=== PATIENT | male | born 1980 | race Caucasian/White ===

== ENCOUNTER 2022-09-05 17:29 | Emergency (ER) | payer OTHER, SELFPAY ==
--- NOTE | ~2022-09-05 | CT_ITS ---
EXAMINATION: CT abdomen pelvis w con DATE: 09/05/2022 19:38 INDICATION: R flank/low back, RUQ pain TECHNIQUE: Computed tomography (CT) of the abdomen and pelvis was performed with 100 mL Omnipaque-350 intravenous contrast. Automated exposure control and iterative reconstruction technique were employe d. The dose-length product was 1599.39 mGy-cm. COMPARISON: None. FINDINGS: Lower thorax: Small focus of atelectasis/consolidation in the right lung base. Trace right pleural fl uid Liver: Normal. Biliary/Gallbladder: Gallbladder is normal. No bile duct dilation. Pancreas: No mass or duct dilation. Spleen: Normal. Adrenals:No mass. Kidneys: No mass, stone, or hydronephrosis. GI tract: No small or large bowel dilation. Normal appendix. Mesentery/Peritoneum: No ascites, mass, or free air. Retroperitoneum: No mass. Pelvis: Pelvic organs are within normal limits. Soft Tissues: Soft tissues and body wall unremarkable. Bones: No acute osseous finding. IMPRESSION: Small focus of dependent atelectasis, consolidation or aspiration in the dependent right lung base. T race right pleural effusion. No other acute abdominopelvic process detected. Specifically there is no evidence of nephrolithiasis, obstructive uropathy, or appendicitis. Reviewed, dictated and finalized at location K. IMPRESSION: Small focus of dependent atelectasis, consolidation or aspiration in the depend ent right lung base. Trace right pleural effusion. No other acute abdominopelvi c process detected. Specifically there is no evidence of nephrolithiasis, obstr uctive uropathy, or appendicitis.
--- NOTE | ~2022-09-05 | CT_ITS ---
EXAMINATION: CTA chest PE protocol DATE: 09/05/2022 20:10 INDICATION: R flank/upper abd pain TECHNIQUE: Computed tomography angiography (CTA) of the chest was performed with 100 mL Omnipaque-350 intravenous contrast timed to evaluate the pulmonary arteries. Coronal maximum intensity projection 3D-reconstructions were created by the technologist. The dose-length product (DLP) was 715.28 mGy-cm. Automated exposure control and iterative reconstruction technique were employed. COMPARISON: None. FINDINGS: Lung parenchyma and airways: Minimal subsegmental right basilar opacity. Pleura: Very small volume right pleural fluid. Thoracic inlet, axillae and chest wall: Unremarkable. Thoracic aorta: Normal. Mediastinum: Normal. Heart and pericardium: Normal. Coronary artery calcifications: Mild cardiomegaly. Upper abdomen: No significant finding. Incidental note of a small right adrenal adenoma. Bones: No acute osseous finding. Pulmonary arteries: Study quality: Adequate. No pulmonary emboli detected. IMPRESSION: No CT evidence of acute pulmonary embolus. Small focus of atelectasis, consolidation, or aspiration i n the right dependent lung base. Trace right pleural effusion. Reviewed, dictated and finalized at location K. IMPRESSION: No CT evidence of acute pulmonary embolus. Small focus of atelectasis, consolid ation, or aspiration in the right dependent lung base. Trace right pleural effu amanda.
[2022-09-05 17:32] VITALS: BP 149/90; PULSE 80; RESP 18; TEMP 37; O2SAT 97
[2022-09-05 17:53] LABS: Basophils Percent Auto 0.4 % (0.2-1.2); Eosinophils Absolute Auto 0.2 K/mm3 (0-0.3); Eosinophils Percent Auto 1.6 % (0-4.4); Hematocrit 46.6 % (42.0-52.0); Hemoglobin 16.3 g/dL (14.0-18.0); Immature Granulocyte Absolute 0.05 K/mm3 (0.00-0.031); Immature Granulocyte Percent A 0.5 % (0-0.5); Lymphocytes Percent Auto 24.7 % (18.3-44.2); Mean Corpuscular Hemoglobin 30.4 pg (26-34); Mean Corpuscular Volume 86.8 fl (80-100); Mean Platelet Volume 9.1 fl (7.4-10.4); Monocytes Absolute Auto 1.2 K/mm3 (0.1-0.6); Monocytes Percent Auto 11.9 % (2.6-8.5); Neutrophils Absolute Auto 6.2 K/mm3 (1.3-6.7); Neutrophils Percent Auto 60.9 % (45.5-73.1); Platelet Count Result 253 k/mm3 (150-375); Red Blood Count 5.37 M/mm3 (4.6-6.20); Red Cell Distribution Width 13.4 % (11.5-14.5); White Blood Count 10.1 K/mm3 (4.5-10.0)
[2022-09-05 18:10] LABS: Alanine Aminotransferase 36 U/L (6-50); Albumin Level 4.4 g/dL (3.5-5.1); Alkaline Phosphatase 72 U/L (38-126); Anion Gap 7 mmol/L (8-16); Aspartate Amino Transferase 29 U/L (17-59); Bilirubin,Total 0.9 mg/dL (0.2-1.3); Blood Urea Nitrogen 13 mg/dL (9-20); Calcium 8.8 mg/dL (8.4-10.2); Carbon Dioxide 27 mmol/L (22-30); Chloride 104 mmol/L (98-107); Estimated CRCL calculation 85 ml/min; Estimated Glomerular Filt Rate > 60; Glucose 104 mg/dL (65-110); Potassium 3.9 mmol/L (3.4-5.0); Sodium 138 mmol/L (137-145)
[2022-09-05 19:03] LABS: Appearance Urine Clear (Clear); Bacteria Urine None Seen /hpf; Bilirubin Urine Negative (Negative); Blood Urine Negative (Negative); Color Urine Yellow (Yellow); Glucose Urine UA Negative (Negative); Ketones Urine Negative (Negative); Leukocyte Esterase Ur Negative LEU/UL (Negative); Nitrate Urine Negative (Negative); Non Pathogenic Casts 0-2; Protein Urine 3+ mg/dL (Negative); RBC Urine 0-2 /hpf (0-2); Specific Grav Ur 1.026 (1.001-1.035); Squamous Epithelial Cell Urine None seen /hpf (Few); WBC Urine 0-5 /hpf; pH Urine 7.5 (5.0-9.0)
--- NOTE | 2022-09-05 19:04 | ED.GENADULT ---
HPI - General Adult General Chief complaint: Urogenital-Male <Dena Palm PA-C - Last Filed: 09/06/22 02:22> Stated complaint: right flank pain, hx pe <ANISHA Man Last Filed: 09/06/22 02:22> Time Seen by Provider: 09/05/22 18:25 <ANISHA Man Last Filed: 09/06/22 02:22> Source: patient <ANISHA Man Last Filed: 09/06/22 02:22> Mode of arrival: ambulatory <ANISHA Man Last Filed: 09/06/22 02:22> Limitations: no limitations <ANISHA Man Last Filed: 09/06/22 02:22> History of Present Illness HPI narrative: Patient is a 41-year-old male who presents the ED with report of right low back and right-sided abdomen pain. Patient reports the pain began suddenly in his right lower back, radiating around to his R upper and lower abdomen, around 4:30 PM today. Pain has been fairly constant since then, worse with movement and certain positions, including walking and lying flat. Patient took Tylenol at the onset of his pain, but denied improvement. He has never had pain like this before. No recent injury or heavy lifting. No Hx of GB issues or kidney stones. Patient denies any N/V/D, constipation, urinary sx's, fevers. Patient notes Hx of pulmonary embolism and states he has had mild difficulty taking deep breaths due to the pain. He is on Eliquis 5mg BID and denies missing any doses. Denies any lower extremity pain or swelling. Denies CP. <ANISHA Man Last Filed: 09/06/22 02:22> Related Data Allergies/adverse reactions: Allergies Allergy/AdvReac Type Severity Reaction Status Date / Time ciprofloxacin Allergy Unknown Unknown Verified 09/05/22 17:30 naproxen Allergy Unknown Unknown Verified 09/05/22 17:30 <ANISHA Man Last Filed: 09/06/22 02:22> Review of Systems Review of Systems: CONSTITUTIONAL: Denies fever, chills, or sweats. CARDIOVASCULAR: Denies chest pain. RESPIRATORY: See HPI. GASTROINTESTINAL: See HPI. GENITOURINARY: Denies dysuria or hematuria. SKIN: Denies rash or itching. MUSCULOSKELETAL: See HPI. NEUROLOGIC: Denies headache, numbness, or weakness. <Dena Palm PA-C - Last Filed: 09/06/22 02:22> All systems reviewed & are unremarkable except as noted in HPI and below <Dena Palm PA-C - Last Filed: 09/06/22 02:22> [facility] Past Medical History Medical History: Medical History History of pulmonary embolism Insomnia <Dena Palm PA-C - Last Filed: 09/06/22 02:22> Surgical History Surgical History: Surgical History No pertinent past surgical history <Dena Palm PA-C - Last Filed: 09/06/22 02:22> Social History Social History: Social History Smoking status: Never smoker <Dena Palm PA-C - Last Filed: 09/06/22 02:22> Exam Narrative: GENERAL: Mildly uncomfortable appearing, morbidly obese, non-toxic, in no acute distress. HEAD: Normocephalic, atraumatic. NECK: Supple. No adenopathy, no masses. RESPIRATORY: Airway patent, respirations nonlabored. Clear to auscultation bilaterally, no rales, rhonchi, wheezing. CARDIOVASCULAR: Regular rate and rhythm without murmurs, rubs, or gallops. Radial pulses 2+ and equal bilaterally. ABDOMINAL: Soft, tenderness in epigastric region and right upper quadrant, nondistended, no hepatosplenomegaly. Normoactive BS. MUSCULOSKELETAL: Moves all extremities. Strength/ROM intact without gross deformities. TTP in R lumbosacral region, no significant midline spinal tenderness. SKIN: Warm, dry, normal color. No rashes. NEURO: A&O X3. Speech clear. Cranial nerves II-XII grossly intact. Steady gait. No ataxic movements. PSYCHIATRIC: Appropriate mood and affect. Normal interact
[2022-09-05] MEDS: SODIUM CHLORIDE 0.9% IV 1,000 ML 999 ML IV CONT (19:18)
[2022-09-05] MEDS: ONDANSETRON INJ 4 MG/2 ML VIAL IV PUSH (19:18)
[2022-09-05] MEDS: MORPHINE SULFATE (*CRX) 4 MG/ML INJ IV PUSH (19:18)
[2022-09-05 19:19] LABS: Add Urine Microscopic? YES
--- NOTE | 2022-09-05 19:59 | ECG_ITS ---
Measurements Intervals [place] Rate: 73 P: 20 MI: 178 QRS: 27 QRSD: 106 T: 4 QT: 372 QTc: 410 Interpretive Statements SINUS RHYTHM NO PREVIOUS ECG AVAILABLE FOR COMPARISON Electronically Signed On 09-06-2022 9:38:46 CDT by Triston Og M.D.
[2022-09-05 20:10] LABS: Lipase 36 U/L (23-300)
[2022-09-05] MEDS: diazePAM INJ (*CRX) 10 MG/2 ML SYRINGE 2 MG IV PUSH (20:19)
[2022-09-05 20:49] LABS: Troponin I < 0.012 ng/mL (0.000-0.034)
[2022-09-05 21:05] VITALS: BP 136/89; PULSE 73; RESP 15; O2SAT 99
== END 2022-09-05 21:28 | disposition home or self-care (01) ==
PROVIDERS: Emergency Medicine; Emergency Provider Physician Assistant; PCP Internal Medicine
DX: J18.9 Pneumonia, unspecified organism (principal); R10.9 Unspecified abdominal pain; J90 Pleural effusion, not elsewhere classified
CPT/HCPCS: 36415; 71275; 74177; 80053; 81001; 83690; 84484; 85025; 93005; 96361; 96374; 96375; 99284; J2270; J2405; J3360; J7030; Q9967

== ENCOUNTER 2025-01-05 00:25 | Day surgery (SDC) | payer OTHER, SELFPAY ==
[2024-12-31 10:06] VITALS: BMI 46.1
--- NOTE | 2025-01-01 17:23 | PC.NURSE ---
Spoke with _patient__ regarding medication _eliquis_. Patient_verbalizes understanding that the last dose is to be taken on 01/01/2025 and the Endoscopist will instruct them when to restart after the procedure.
--- OUTSIDE RECORDS SUMMARY | 2025-01-05 00:28 | XMS_ITS | Clinical Summary ---
Author Organization [facility] Address [address] [place] [address] Phone Care Team Providers Care Otolaryngology Rep Name Role Phone Maxx Chen MD Primary Care Provider [phone] Social History Tobacco Use Types Packs/Day Years Used Date Smoking Tobacco: Never Assessed Sex and Gender Information Value Date Recorded Sex Assigned at Not on file Legal Sex Male 8:20 AM CDT Gender Identity Not on file Sexual Orientation Not on file Plan of Treatment Health Maintenance Due Date Last Done Comments DTAP/TDAP/TD VACCINES (1 - Tdap) 10/26/1998 HEPATITIS B VACCINES (1 of 3 - 19+ 3-dose series) 10/12 HPV VACCINES (1 - 3-dose SCDM series) 10/26/2006 COLORECTAL SCREENING 10/26/2024 Colorectal Cancer Screening 10/26/2024 FIT-DNA Q 3 years 10/26/2024 FIT/FOBT Q 1 year 10/26/2024 Flex Sig/CT Colonography Q 5 years 10/26/2024 INFLUENZA VACCINE (#1) 2024 Care Teams Otolaryngology Rep Relationship Specialty Start Date End Date Maxx Chen MD [address] [facility] [address] [place] [id number] PCP - General Internal Medicine 11/08/16
--- NOTE | 2025-01-05 06:59 | P.PNAN_ITS ---
Anes - Initial Pre Proc Eval Procedure: Operation Date: 01/05/25 11:00 Proposed Procedures p Screening Colonoscopy - Ilan Pang DO Date/Time: 01/05/25 06:59 Surgeon: Ilan Pang DO Pre Op Diagnosis: Neoplasm screening Patient Data Age: 44 Gender: M Height: 1.63 m Weight: 122 kg Allergies Allergy/AdvReac Type Severity Reaction Status Date / Time ciprofloxacin Allergy Unknown Unknown Verified 01/05/25 10:01 naproxen Allergy Unknown Unknown Verified 01/05/25 10:01 Home Medications ?Medication ?Instructions ?Recorded ?Confirmed ?Type apixaban 5 mg tablet (Eliquis) 5 mg PO Q12H 12/31/24 0 01/05/25 History cholecalciferol (vitamin D3) 125 5,000 unit PO DAILY 0 12/31/24 01/05/25 History mcg (5,000 unit) tablet (Vitamin D3) trazodone 50 mg tablet 50 mg PO HS 12/31/24 5 History Patient hx anesthesia problems: none Family hx anesthesia problems: none Results Review: All pre-operative results and documents have been reviewed as part of the pre- operative evaluation. [facility] Past Medical History Medical History History of pulmonary embolism Insomnia Surgical History Surgical History No pertinent past surgical history Social History Social History Smoking packs per day: 0.5 Smoking cigarettes per day: 10.0 Years smoked: 20 Smoking pack-years: 10.00 Smoking status: Former smoker Tobacco type: cigarettes and e-cigarettes/vaping Alcohol intake: current Alcohol use details: 2-10 SHOTS OF WHISKEY ON THE WEEKENDS Substance use: former Substance use type: does not use Living arrangements: with family Spiritual care concerns: No Anes - Eval Final PreProcedure Day of Procedure 01/05/25 06:59 Patient weight: morbidly obese Heart: regular rate and rhythm Lungs: clear to auscultation Airway: Mallampati scale class II Neurological: alert and oriented Last oral intake: >/= 8 hours ASA classification: III Emergent: no Anesthetic plan: proceed Anesthesia type and monitoring: general GIVS and standard monitoring Results Review: All pre-operative results and documents have been reviewed as part of the pre- operative evaluation. Informed Consent: The patient's anesthetic plan and its attendant risks and benefits were discussed with the patient/family/POA. Questions were solicited and answers provided to the satisfaction of the patient/family/POA.
[2025-01-05 09:57] VITALS: BP 123/86; PULSE 82; RESP 16; TEMP 36.5; O2SAT 98; BMI 45.9
[2025-01-05] MEDS: LACTATED RINGERS 1,000 ML 150 ML IV CONT (10:13)
--- NOTE | 2025-01-05 10:27 | PM.IMHP ---
H&P: HPI History of Present Illness Date/Time: 01/05/25 10:27 Chief Complaint: screening for colorectal cancer Narrative: this is a 44-year-old man who presents for colonoscopy. He has never had a colonoscopy before. He denies any hematochezia melena. He is adopted and does not know his family history. Review of Systems Review of Systems: All systems reviewed & are unremarkable except as noted in HPI and below Constitutional: Constitutional: Denies chills, Denies fever(s), Denies headache(s) and Denies weight loss Eyes: Eyes: Denies change in vision ENT: Denies dizziness, Denies headache(s), Denies neck mass and Denies throat swelling Cardiovascular: Cardiovascular: Denies chest pain, Denies lightheadedness and Denies dyspnea Respiratory: Respiratory: Denies cough, Denies dyspnea and Denies wheezing Gastrointestinal: Gastrointestinal: Denies abdominal pain, Denies change in bowel habits, Denies nausea and Denies vomiting Genitourinary: Genitourinary: Denies hematuria and Denies dysuria Musculoskeletal: Musculoskeletal: Reports as per HPI Integumentary/Breasts: Skin/Breast: Reports as per HPI Neurologic: Denies dizziness and Denies headache(s) Allergic/Immunologic: Allergic/Immunologic: Denies throat swelling and Denies wheezing PMF Past Medical History Medical History History of pulmonary embolism Insomnia Surgical History Surgical History No pertinent past surgical history Social History Social History Smoking packs per day: 0.5 Smoking cigarettes per day: 10.0 Years smoked: 20 Smoking pack-years: 10.00 Smoking status: Former smoker Tobacco type: cigarettes and e-cigarettes/vaping Alcohol intake: current Alcohol use details: 2-10 SHOTS OF WHISKEY ON THE WEEKENDS Substance use: former Substance use type: does not use Living arrangements: with family Spiritual care concerns: No Meds Home Medications and Allergies Home Medications ?Medication ?Instructions ?Recorded ?Confirmed ?Type apixaban 5 mg tablet (Eliquis) 5 mg PO Q12H 12/31/24 01/05/25 History cholecalciferol (vitamin D3) 125 5,000 unit PO DAILY 12/31/24 01/05/25 History mcg (5,000 unit) tablet (Vitamin D3) trazodone 50 mg tablet 50 mg PO HS 12/31/24 01/05/25 History Allergies Allergy/AdvReac Type Severity Reaction Status Date / Time ciprofloxacin Allergy Unknown Unknown Verified 01/05/25 10:01 naproxen Allergy Unknown Unknown Verified 01/05/25 10:01 Vital Signs Vital Signs - 24 hr 01/05/25 09:57 Temperature 97.7 F Pulse Rate 82 Respiratory Rate 16 Blood Pressure 123/86 Pulse Oximetry 98 Oxygen Delivery Room Air Exam Const: General: no acute distress and alert Orientation/consciousness: patient oriented x3 HENMT: Head: normocephalic and atraumatic Ears: hearing grossly normal bilaterally Face/Nose/Sinus: Normal nares present Mouth: Yes Normal oral and palatal mucosa present Eyes: Periorbital: periorbital findings normal Sclera: sclerae normal EOM: EOMs intact bilaterally Neck: Neck: normal visual inspection, no lymphadenopathy and trachea midline Chest: Chest palpation & inspection: normal inspection of the chest Resp: Effort & Inspection: normal respiratory effort Auscultation: clear to auscultation bilaterally Cardio: Jugular venous distension: no JVD Rate: regular rate Rhythm: regular rhythm Heart sounds: S1 normal heart sound present and S2 normal heart sound present Peripheral pulses: Peripheral pulses 2+ throughout GI: Inspection: normal to inspection GI Palp: Yes Soft to palpation, No Tenderness to palpation present (GI), No Guarding due to palpation present (GI) and No Rebound tenderness present Percussion: Yes normal to percussion Auscultation: normal bowel sounds : General: Yes no CVA tenderness Back/Spine/Pelvis: Back: no CVA tenderness Neuro: General: patient oriented x3, no focal motor deficits and CN's II-XI intact bilaterally Cognition (Neuro): normal cognition Speech: normal speech Motor exam (neuro): 5/5 motor strength present throughout Extrem: General: capillary refill normal and no clubbing, cyanosis or edema Assessment and Plan Assessment and plan (1) Screening for colorectal cancer: Code(s): Z12.11 - Encounter for screening for malignant neoplasm of colon; Z12.12 - Encounter for screening for malignant neoplasm of rectum Status: Acute Assessment and Plan: I have recommended colonoscopy. I have discussed the procedure, risks, benefits, and alternatives. Questions were answered. Patient is agreeable to proceed.
[2025-01-05 10:44] VITALS: BP 109/70; PULSE 87; RESP 15; O2SAT 91
[2025-01-05 10:54] VITALS: BP 103/65; PULSE 81; RESP 17; O2SAT 96
[2025-01-05 11:04] VITALS: BP 114/71; PULSE 80; RESP 17; O2SAT 99
== END 2025-01-05 11:15 | disposition home or self-care (01) ==
PROVIDERS: PCP Internal Medicine; Visit Provider Surgery
PROC: 0DJD8ZZ Inspection of Lower Intestinal Tract, Via Natural or Artificial Opening Endoscopic (ICD-10-PCS; CPT 45378; principal; 2025-01-05 11:00)
DX: Z12.11 Encounter for screening for malignant neoplasm of colon (principal); G47.00 Insomnia, unspecified; E66.01 Morbid (severe) obesity due to excess calories; Z68.42 Body mass index [BMI] 45.0-49.9, adult; Z79.01 Long term (current) use of anticoagulants; Z87.891 Personal history of nicotine dependence; Z86.711 Personal history of pulmonary embolism
CPT/HCPCS: 45378; J7120